=== PATIENT | female | born 1960 | race Caucasian/White ===

== ENCOUNTER 2017-04-02 10:50 | Emergency (ER) | payer OTHER ==
[2017-04-02 12:04] VITALS: BP 147/83
--- NOTE | 2017-04-02 12:39 | UC ---
Throat Pain/Nasal Alcon HPI - HPI Summary HPI Summary: Dry cough and mild hoarseness since this morning. She cares for grandchildren who were dx with strep 3 days ago, daughter dx yesterday. Is having surgery in 9 days and is concerned about strep. Denies fever, vomiting, or trouble breathing. - History of Current Complaint Chief Complaint: UCRespiratory Stated Complaint: SORE THROAT Time Seen by Provider: 04/02/17 12:17 Hx Obtained From: Patient ?: No Onset/Duration: Gradual Onset, Lasting Hours Severity: Mild Cough: Nonproductive Associated Signs & Symptoms: Negative: Nasal Discharge, Fever, Vomiting - Allergies/Home Medications Allergies/Adverse Reactions: Allergies Allergy/AdvReac Type Severity Reaction Status Date / Time No Known Allergies Allergy Verified 11/25/16 16:25 Home Medications: Home Medications Cetirizine* [ZyrTEC 10 MG TAB*] 04/02/17 [History] PMH/Surg Hx/FS Hx/Imm Hx Endocrine History Of: Reports: Dyslipidemia Denies: Diabetes, Thyroid Disease Cardiovascular History Of: Reports: Hypertension Denies: Cardiac Disorders Respiratory History Of: Denies: COPD, Asthma GI/ History Of: Denies: Ulcer - Surgical History Surgical History: Yes Surgery Procedure, Year, and Place: hysterr; 3 cs-ections; tonsil - Family History Known Family History: Positive: None, Cardiac Disease, Hypertension, Diabetes, Renal Disease - Social History Occupation: Retired Lives: Alone Alcohol Use: None Substance Use Type: None Smoking Status (MU): Never Smoked Tobacco - Immunization History Most Recent Influenza Vaccination: AUG 2015 Review of Systems Constitutional: Negative Skin: Negative Eyes: Negative ENT: Other - hoarseness Respiratory: Cough Cardiovascular: Negative Gastrointestinal: Negative Genitourinary: Negative Motor: Negative Neurovascular: Negative Musculoskeletal: Negative Neurological: Negative Psychological: Negative All Other Systems Reviewed And Are Negative: Yes Physical Exam Triage Information Reviewed: Yes Appearance: Well-Appearing, No Pain Distress, Obese Vital Signs: Initial Vital Signs Temp 97.4 F 04/02/17 12:00 Pulse 66 04/02/17 12:00 Resp 18 04/02/17 12:00 BP 147/83 04/02/17 12:00 Pulse Ox 99 04/02/17 12:00 Vital Signs Reviewed: Yes Eye Exam: Normal Eyes: Positive: Conjunctiva Clear ENT Exam: Normal ENT: Positive: Normal ENT inspection, Hearing grossly normal, Pharynx normal, TMs normal. Negative: Tonsillar swelling - s/p tonsillecomy, Muffled/hoarse voice Dental Exam: Normal Neck exam: Normal Neck: Positive: Supple, Nontender, No Lymphadenopathy Respiratory Exam: Normal Respiratory: Positive: Chest non-tender, Lungs clear, Normal breath sounds, No respiratory distress, No accessory muscle use Cardiovascular Exam: Normal Cardiovascular: Positive: RRR, No Murmur Musculoskeletal Exam: Normal Neurological Exam: Normal Neurological: Positive: Alert Psychological Exam: Normal Skin Exam: Normal Throat Pain/Nasal Course/Dx - Differential Dx/Diagnosis Provider Diagnoses: URI, likely viral Discharge - Discharge Plan Condition: Stable Disposition: HOME Patient Education Materials: Cold Symptoms (ED) Referrals: Tylor Cardenas MD [Primary Care Provider] - 2 Weeks Additional Instructions: Rapid strep negative
== END 2017-04-02 12:45 | disposition home or self-care (01) ==
LOC: UCEAST 10:50
DX: J06.9 Acute upper respiratory infection, unspecified (principal); E78.5 Hyperlipidemia, unspecified; I10 Essential (primary) hypertension
CPT/HCPCS: 87651; 99211; G0463

== ENCOUNTER 2017-04-14 16:12 | Emergency (ER) | payer OTHER ==
[2017-04-14 17:05] VITALS: BP 98/60
--- NOTE | 2017-04-14 17:14 | UC ---
HPI Wound/Suture Re-check - HPI Summary HPI Summary: The patient comes in today for: 1. Right knee dressing change: Onset: 4 days ago, she had surgery by Dr. Zhao at [facility]: She was in [facility]. She had knee replacement surgery. Palliative/provocative: Walking makes the pain worse. Quality: [place]: Right knee Severity: 2/10 Time: Constant. Associated symptoms: Event: She noticed that there is spotting of the bandage and that the edge of the dressing is getting loose. She called Dr. Zhao's office who told her here to have it changed. Fevers: None. Pain: 2/10 (usual pain as long as she is not walking). Her next appointment is in about a week. The patient does not have any other questions or concerns. * - History Of Current Complaint Chief Complaint: UCSkin Stated Complaint: KNEE COMPLAINT Time Seen by Provider: 04/14/17 17:01 Hx Obtained From: Patient - Allergies/Home Medications Allergies/Adverse Reactions: Allergies Allergy/AdvReac Type Severity Reaction Status Date / Time No Known Allergies Allergy Verified 11/25/16 16:25 Home Medications: Home Medications Aspirin [Aspirin 81 MG TAB] DAILY 04/14/17 [History] Cyclobenzaprine TAB* [Flexeril 10 MG TAB*] 04/14/17 [History] Oxycodone HCl [Oxaydo] Q6H 04/14/17 [History] PMH/Surg Hx/FS Hx/Imm Hx Previously Healthy: No Endocrine History Of: Reports: Dyslipidemia Denies: Diabetes, Thyroid Disease, Hyperthyroidism, Hypothyroidism Cardiovascular History Of: Reports: Hypertension Denies: Cardiac Disorders, Pacemaker/ICD, Myocardial Infarction, Congestive Heart Failure, Atrial Fibrillation, Deep Vein Thrombosis, Bleeding Disorders Respiratory History Of: Denies: COPD, Asthma, Bronchitis, Pneumonia, Pulmonary Embolism GI/ History Of: Denies: Gastroesophageal Reflux, Ulcer, Gastrointestinal Bleed, Gall Bladder Disease, Kidney Stones, Diverticulitis, Renal Disease, Urosepsis Neurological History Of: Denies: TIA, CVA, Dementia, Seizures, Migraine Psychological History Of: Denies: Anxiety, Depression, Bipolar Disorder, Schizophrenia, Post Traumatic Stress Disorder Cancer History Of: Denies: Lung Cancer, Colorectal Cancer, Breast Cancer, Prostate Cancer, Cervical Cancer Other History Of: Anticoagulant Therapy - She is on aspirin for surgery. Negative For: HIV, Hepatitis B, Hepatitis C - Surgical History Surgical History: Yes Surgery Procedure, Year, and Place: hysterr; 3 cs-ections; tonsil - Family History Known Family History: Positive: Cardiac Disease, Hypertension, Diabetes, Renal Disease - Social History Occupation: Unemployed Alcohol Use: None Substance Use Type: None Smoking Status (MU): Never Smoked Tobacco - Immunization History Most Recent Influenza Vaccination: AUG 2015 Review of Systems Constitutional: Negative Skin: Negative Eyes: Negative ENT: Negative Respiratory: Negative Cardiovascular: Negative Gastrointestinal: Negative Genitourinary: Negative All Other Systems Reviewed And Are Negative: Yes Physical Exam Triage Information Reviewed: Yes Appearance: Well-Appearing, No Pain Distress, Well-Nourished Vital Signs: Initial Vital Signs Temp 99.2 F 04/14/17 16:57 Pulse 94 04/14/17 16:57 Resp 18 04/14/17 16:57 BP 98/60 04/14/17 16:57 Pulse Ox 95 04/14/17 16:57 Vital Signs Reviewed: Yes Eyes: Positive: Conjunctiva Clear. Negative: Discharge ENT: Positive: Hearing grossly normal. Negative: Pharyngeal erythema, Nasal congestion - Left ear: Cerumen in place. However, there is no canal erythema or edema. Right ear: The TM is ocasio and translucent. Dental: Negative: Gross Decay/Caries @, Dental Fracture @ Neck: Positive: Supple, Nontender, No Lymphadenopathy. Negative: Nuchal Rigidity Respiratory: Positive: Chest non-tender, Lungs clear, No respiratory distress, No accessory muscle use. Negative: Crackles, Wheezing Cardiovascular: Positive: RRR, No Murmur Abdomen Description: Positive: Nontender, No Organomegaly, Soft Musculoskeletal: Positive: Other: - The right leg has an anterior bandage which has a gauze-like material in the middle with a soft, brown, spongy-like rim. This brown rim is lifting away from the skin in the upper, outer corner exposing the white gauze-like material. The leg looks ecchymotic. Neurological: Positive: Alert, Muscle Tone Normal Psychological: Positive: Age Appropriate Behavior, Consolable Skin: Negative: rashes, breakdown Course/Dx - Course Course Of Treatment: A call was placed at [phone]. I was told that the on- call provder would contact me on my cell phone. The covering orthopedic surgeon called back and the patient's situation was discussed. He recommended that she drive to [address] [place] [address] in [place], [place]. She was told this and they agreed to go there. - Differential Dx - Laceration/Wound Provider Diagnoses: Post-op right knee replacement evaluation (specialized dressing change needed). Discharge - Discharge Plan Condition: Stable Disposition: HOME Patient Education Materials: Knee Pain (ED) Additional Instructions: Please go to the [facility] urgent care center at [address] [place] [address] in [place], [place].
== END 2017-04-14 18:18 | disposition home or self-care (01) ==
LOC: UCEAST 16:12
DX: Z96.651 Presence of right artificial knee joint (principal); Z48.01 Encounter for change or removal of surgical wound dressing; E78.5 Hyperlipidemia, unspecified; I10 Essential (primary) hypertension; Z79.01 Long term (current) use of anticoagulants; Z90.710 Acquired absence of both cervix and uterus
CPT/HCPCS: 99212; G0463

== ENCOUNTER 2018-04-19 16:42 | Emergency (ER) | payer OTHER ==
[2018-04-19 17:08] VITALS: BP 165/89
[2018-04-19] MEDS ORDERED: Tetan/Diph/Pertus SYR(Tdap)* 0.5 ML SYR(BOOSTRIX) use SYR IM ONE (17:59)
[2018-04-19] MEDS ORDERED: Benzoin Compound STICK TOPICAL ONE (18:00)
--- NOTE | 2018-05-28 17:06 | UC ---
Laceration HPI - HPI Summary HPI Summary: small laceration left third finger--patient is here for a tetanus vaccine update - History Of Current Complaint Chief Complaint: UCLaceration Stated Complaint: L HAND FINGER LAC Time Seen by Provider: 04/19/18 17:56 Hx Obtained From: Patient Laceration Location: Finger - left third Mechanism Of Injury: Sharp Trauma Onset/Duration: Sudden Onset Pain Intensity: 0 Pain Scale Used: 0-10 Numeric - Allergies/Home Medications Allergies/Adverse Reactions: Allergies Allergy/AdvReac Type Severity Reaction Status Date / Time No Known Allergies Allergy Verified 04/19/18 17:08 Home Medications: Home Medications Atorvastatin* [Lipitor*] 20 mg PO 1700 04/19/18 [History Confirmed 04/19/18] Cetirizine* [ZyrTEC 10 MG TAB*] 10 mg PO DAILY 04/19/18 [History Confirmed 04/19] Cyclobenzaprine TAB* [Flexeril 10 MG TAB*] 10 mg PO BID PRN 04/19/18 [History Confirmed 04/19/18] Gabapentin [Neurontin] 100 mg PO TID 04/19/18 [History Confirmed 04/19/18] Levothyroxine TAB* [Synthroid TAB*] 75 mcg PO 0800 04/19/18 [History Confirmed 04/19/18] Metoprolol Succinate [Metoprolol Succinate ER] 25 mg PO 04/19/18 [History] PMH/Surg Hx/FS Hx/Imm Hx Previously Healthy: No Endocrine History: Hypothyroidism, Dyslipidemia Cardiovascular History: Hypertension Other History Of: Anticoagulant Therapy - She is on aspirin for surgery. Negative For: HIV, Hepatitis B, Hepatitis C - Surgical History Surgical History: Yes Surgery Procedure, Year, and Place: hysterr; 3 cs-ections; tonsil, knee replacement - Family History Known Family History: Positive: None, Cardiac Disease, Hypertension, Diabetes, Renal Disease - Social History Occupation: Disabled Lives: With Family Alcohol Use: None Substance Use Type: None Smoking Status (MU): Never Smoked Tobacco - Immunization History Most Recent Influenza Vaccination: AUG 2015 Review of Systems Constitutional: Negative Skin: Other - 5 mm laceration left third finger--on a knife prior to arrival Eyes: Negative ENT: Negative Respiratory: Negative Cardiovascular: Negative Gastrointestinal: Negative Genitourinary: Negative Motor: Negative Neurovascular: Negative Musculoskeletal: Negative Neurological: Negative Psychological: Negative Is Patient Immunocompromised?: No All Other Systems Reviewed And Are Negative: Yes Physical Exam Triage Information Reviewed: Yes Appearance: Well-Appearing, No Pain Distress, Well-Nourished Vital Signs: Initial Vital Signs Temp 98.1 F 04/19/18 17:03 Pulse 79 04/19/18 17:03 Resp 18 04/19/18 17:03 BP 165/89 04/19/18 17:03 Pulse Ox 100 04/19/18 17:03 Vital Signs Reviewed: Yes Eye Exam: Normal Eyes: Positive: Conjunctiva Clear ENT Exam: Normal ENT: Positive: Normal ENT inspection, Hearing grossly normal. Negative: Trismus , Muffled voice, Hoarse voice Dental Exam: Normal Neck exam: Normal Neck: Positive: Supple, Nontender Respiratory Exam: Normal Respiratory: Positive: Chest non-tender, No respiratory distress, No accessory muscle use Cardiovascular Exam: Normal Cardiovascular: Positive: RRR, Pulses Normal, Brisk Capillary Refill Musculoskeletal Exam: Normal Musculoskeletal: Positive: Strength Intact, ROM Intact, No Edema Neurological Exam: Normal Neurological: Positive: Alert, Muscle Tone Normal Psychological Exam: Normal Skin Exam: Normal Skin: Positive: Other - 5 mm laceation left 3rd finger--no bleeding Laceration Repair - Laceration Repair 1 Description: Linear Modified For Repair: No Cleansing Completed Via Routine Prep: Yes Irrigation With Pressure Irrigation Device: Yes Closure Material: Skin Adhesive Closure Method: Single Layer Laceration Course/Dx - Course/Dx Course Of Treatment: update tetanus, skin glue instruction, follow bp with pcp - Differential Dx - Laceration/Wound Provider Diagnoses: repaired lac left third finger, hypertension in poor control Discharge - Sign-Out/Discharge Documenting (check all that apply): Discharge/Admit/Transfer - Discharge Plan Condition: Stable Disposition: HOME Patient Education Materials: Finger Laceration (ED), Hypertension (ED), Skin Adhesive Care (ED), Steristrips (ED) Referrals: Tylor Cardenas MD [Primary Care Provider] - 2 Weeks - Billing Disposition and Condition Condition: STABLE Disposition: Home
== END 2018-04-19 18:50 | disposition home or self-care (01) ==
LOC: UCEAST 16:42
DX: S61.213A Laceration without foreign body of left middle finger without damage to nail, initial encounter (principal); W26.9XXA Contact with unspecified sharp object(s), initial encounter; Y93.9 Activity, unspecified; Y92.9 Unspecified place or not applicable; Z23 Encounter for immunization; I10 Essential (primary) hypertension; E03.9 Hypothyroidism, unspecified; E78.5 Hyperlipidemia, unspecified; Z79.82 Long term (current) use of aspirin; Z96.659 Presence of unspecified artificial knee joint
CPT/HCPCS: 12001; 90471; 90715; 99212; G0463